=== PATIENT | female | born 1995 | race American Indian/Alaskan Native ===

== ENCOUNTER 2016-11-21 00:42 | Emergency (ER) | payer SELFPAY ==
[2016-11-21 04:07] LABS: Basophils % (Auto) 0.4 % (0.0-1.8); Eosinophils % (Auto) 0.1 % (0.0-4.3); Hematocrit 36.3 % (30.3-42.9); Hemoglobin 12.5 gm/dl (10.1-14.3); Mean Corpuscular HGB Conc 34 % (30-34); Mean Corpuscular Hemoglobin 30 pg (28-32); Mean Corpuscular Volume 86 fl (79-97); Platelet Count 197 K/mm3 (140-440); Red Blood Count 4.23 M/mm3 (3.65-5.03); Red Cell Distribution Width 12.8 % (13.2-15.2); White Blood Count 8.2 K/mm3 (4.5-11.0)
[2016-11-21 04:31] LABS: Alanine Aminotransferase 7 units/L (7-56); Albumin 3.6 g/dL (3.9-5); Albumin/Globulin Ratio 1.2 %; Alkaline Phosphatase 28 units/L (35-129); Anion Gap 17 mmol/L; Bilirubin,Total 0.5 mg/dL (0.1-1.2); Blood Urea Nitrogen 6 mg/dL (7-17); Calcium 9.2 mg/dL (8.4-10.2); Carbon Dioxide 20 mmol/L (22-30); Chloride 103.5 mmol/L (98-107); Glucose 83 mg/dL (65-100); Lipase 23 units/L (13-60); Sodium 136 mmol/L (137-145); Total Protein 6.5 g/dL (6.3-8.2)
[2016-11-21] MEDS ORDERED: TYLENOL PO ONE (07:07)
[2016-11-21] MEDS ORDERED: ALUM-MAG HYDROX-SIMETH 200-200-20MG/5ML PO ONE (07:07)
--- NOTE | 2016-11-21 07:08 | Emergency Department Report ---
ED General Adult HPI - General Chief complaint: Abdominal Pain Stated complaint: STOMACH/THROAT PAIN Time Seen by Provider: 11/21/16 06:59 Source: patient, RN notes reviewed, old records reviewed Mode of arrival: Ambulatory Limitations: No Limitations - History of Present Illness Initial comments: This is a 21-year-old female. She is previously unknown to me. She is 2, para 1. Reports last menstrual period August 25. 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 Reports not really having much in way of care. Presents to the ER with 2 complaints. First complaint is abdominal pain. Abdominal pain is in the left midabdominal region, and intermittently in the right mid abdominal region. It vacillates back and forth. There is no vomiting, no irritative or obstructive urinary symptoms, is currently no right lower quadrant pain, no vaginal discharge, she reports that she is defecating normally. There is no vaginal bleeding. The patient also complains of cough, dry throat, sore throat. This is been going on for the past few days. -: Gradual Location: abdomen Severity scale (0 -10): 4 Quality: aching Consistency: intermittent Improves with: none Worsens with: none Associated Symptoms: cough. denies: chest pain, malaise - Related Data Previous Rx's Medication Instructions Recorded Last Taken Type Doxycycline [Vibramycin CAP] 100 mg PO Q12HR #28 capsule 11/29/15 Unknown Rx Ibuprofen [Motrin] 800 mg PO Q8HR PRN #30 tablet 11/29/15 Unknown Rx Levofloxacin [Levaquin TAB] 500 mg PO QDAY #14 tablet 11/29/15 Unknown Rx metroNIDAZOLE [Flagyl] 500 mg PO Q8HR #28 tablet 11/29/15 Unknown Rx traMADol [Ultram 50 MG tab] 50 mg PO Q6HR PRN #20 tablet 11/29/15 Unknown Rx Ondansetron [Zofran Odt] 4 mg PO Q6H PRN #15 tab.rapdis 11/30/15 Unknown Rx Nitrofurantoin [place]/M-Cryst 100 mg PO Q12HR #14 capsule 10/14/16 Unknown Rx [Macrobid CAP] Vit No.130/Iron/FA 1 each PO QDAY #30 tablet 10/14/16 Unknown Rx [ Tablet] Doxylamine/Pyridoxine HCl 1 each PO QHS PRN #30 tablet. 11/21/16 Unknown Rx [Renetta Hui 10-10 mg Tablet] Vit W-Ca,Fe,FA(<1 mg) 1 each PO QDAY #30 tablet 11/21/16 Unknown Rx [ Vitamins] Allergies Allergy/AdvReac Type Severity Reaction Status Date / Time Penicillins Allergy Unknown Verified 10/13/16 18:28 ED Review of Systems ROS: Stated complaint: STOMACH/THROAT PAIN Other details as noted in HPI Constitutional: no symptoms reported, see HPI Eyes: as per HPI ENT: throat pain Respiratory: no symptoms reported Cardiovascular: as per HPI Endocrine: no symptoms reported Gastrointestinal: abdominal pain Genitourinary: as per HPI Musculoskeletal: as per HPI Skin: as per HPI Neurological: as per HPI Psychiatric: as per HPI Hematological/Lymphatic: as per HPI ED Past Medical Hx - Past Medical History Previous Medical History?: Yes Hx Hypertension: No Hx GERD: Yes Hx Psychiatric Treatment: Yes ([place]- 3x) Hx Asthma: Yes Additional medical history: Neurofibromatosis - Surgical History Past Surgical History?: Yes Additional Surgical History: [place] teeth, left arm - Social History Smoking Status: Never Smoker Substance Use Type: None - Medications Home Medications: Home Medications Medication Instructions Recorded Confirmed Last Taken Type Doxycycline [Vibramycin CAP] 100 mg PO Q12HR #28 capsule 11/29/15 Unknown Rx Ibuprofen [Motrin] 800 mg PO Q8HR PRN #30 tablet 11/29/15 Unknown Rx Levofloxacin [Levaquin TAB] 500 mg PO QDAY #14 tablet 11/29/15 Unknown Rx metroNIDAZOLE [Flagyl] 500 mg PO Q8HR #28 tablet 11/29/15 Unknown Rx traMADol [Ultram 50 MG tab] 50 mg PO Q6HR PRN #20 tablet 11/29/15 Unknown Rx Ondansetron [Zofran Odt] 4 mg PO Q6H PRN #15 tab.rapdis 11/30/15 Unknown Rx Nitrofurantoin [place]/M-Cryst 100 mg PO Q12HR #14 capsule 10/14/16 Unknown Rx [Macrobid CAP] Vit No.130/Iron/FA 1 each PO QDAY #30 tablet 10/14/16 Unknown Rx [ Tablet] Doxylamine/Pyridoxine HCl 1 each PO QHS PRN #30 tablet. 11/21/16 Unknown Rx [Renetta Hui 10-10 mg Tablet] Vit W-Ca,Fe,FA(<1 mg) 1 each PO QDAY #30 tablet 11/21/16 Unknown Rx [ Vitamins] ED Physical Exam - General Limitations: No Limitations General appearance: alert, in no apparent distress - Head Head exam: Present: atraumatic, normocephalic - Eye Eye exam: Present: normal appearance, EOMI. Absent: nystagmus - ENT ENT exam: Present: normal exam, normal orophraynx, mucous membranes moist, normal external ear exam, other (there are no pharyngeal exudates. There is no obvious cervical adenopathy) - Neck Neck exam: Present: normal inspection. Absent: tenderness, meningismus - Respiratory Respiratory exam: Present: normal lung sounds bilaterally. Absent: respiratory distress, wheezes, rales, rhonchi, stridor, chest wall tenderness, accessory muscle use, decreased breath sounds, prolonged expiratory - Cardiovascular Cardiovascular Exam: Present: regular rate, normal rhythm, normal heart sounds. Absent: bradycardia, tachycardia, systolic murmur, diastolic murmur, rubs, gallop - GI/Abdominal GI/Abdominal exam: Present: soft, normal bowel sounds, other (there is minimal left lower quadrant tenderness. There is no right lower quadrant tenderness, rebound or guarding. There is minimal right upper quadrant tenderness, with a negative Gonzalez sign). Absent: distended, guarding, rebound, rigid, pulsatile mass - Extremities Exam Extremities exam: Present: normal inspection, full ROM, normal capillary refill. Absent: tenderness, pedal edema, joint swelling, calf tenderness - Back Exam Back exam: Present: normal inspection, full ROM. Absent: tenderness, CVA tenderness (L), muscle spasm, paraspinal tenderness, vertebral tenderness - Neurological Exam Neurological exam: Present: alert, oriented X3, normal gait, other (Extraocular movements intact. Tongue midline. No facial droop. Facial sensation intact to light touch in the V1, V2, V3 distribution bilaterally. 5 and 5 strength in 4 extremities.. Sensation is intact to light touch in 4 extremities.). Absent : motor sensory deficit - Psychiatric Psychiatric exam: Present: normal affect, normal mood - Skin Skin exam: Present: warm, dry, intact, normal color. Absent: rash ED Course Vital Signs 11/21/16 11/21/16 11/21/16 01:38 08:35 08:36 Temperature 98.5 F 98.7 F Pulse Rate 81 89 Respiratory 18 16 16 Rate Blood Pressure 131/67 116/62 [Right] O2 Sat by Pulse 100 100 100 Oximetry - Reevaluation(s) Reevaluation #1: 11/21/16 07:21 Differential diagnosis: , urinary tract infection, biliary colic, ovarian cyst, round ligament pain, urinary tract infection, constipation, nonspecific pharyngeal irritation Assessment and plan: 21-year-old female with 2 complaints. In terms of the patient's abdominal pain, there is no right lower quadrant tenderness, rebound or guarding, she is afebrile without leukocytosis, and tolerating liquid feeds. I highly doubt appendicitis. Patient has been poorly compliant with outpatient care, she has normal liver function panel and normal lipase, I think biliary disease is unlikely, we will obtain a right upper quadrant ultrasound, urinalysis, and ultrasound. She will be treated with acetaminophen. A urinalysis is pending. In terms of the patient's pharyngeal irritation, there is no obvious redness, exudates, adenopathy, she scores a 0 on the Centor criteria. Therefore think strep pharyngitis is unlikely. She will be given ice chips. Reevaluation #2: 11/21/16 08:49 Feels improved after Tylenol. Belly soft on repeat examination. Tolerating liquid feeds. Ultrasound demonstrates small subchorionic hemorrhage. Patient was found to be Rh+ 1 month ago. Right upper quadrant ultrasound negative. Gynecologic examination: Escorted by nurse Ame Castro. Normal external exam, no cervical motion tenderness no adnexal tenderness. Patient is instructed as to the importance of close outpatient follow-up to initiate care. She will be discharged at this time. Return precautions are reviewed. ED Medical Decision Making - Lab Data Result diagrams: 11/21/16 03:57 11/21/16 03:57 Vital Signs 11/21/16 01:38 Temperature 98.5 F Pulse Rate 81 Respiratory 18 Rate Blood Pressure 131/67 [Right] O2 Sat by Pulse 100 Oximetry Lab Results 11/21/16 11/21/16 11/21/16 Range/Units 03:57 03:57 03:57 WBC 8.2 (4.5-11.0) K/mm3 RBC 4.23 (3.65-5.03) M/mm3 Hgb 12.5 (10.1-14.3) gm/dl Hct 36.3 (30.3-42.9) % MCV 86 (79-97) fl MCH 30 (28-32) pg MCHC 34 (30-34) % RDW 12.8 L (13.2-15.2) % Plt Count 197 (140-440) K/mm3 Lymph % (Auto) 25.1 (13.4-35.0) % [place] % (Auto) 9.9 H (0.0-7.3) % Eos % (Auto) 0.1 (0.0-4.3) % Baso % (Auto) 0.4 (0.0-1.8) % Lymph # 2.0 (1.2-5.4) K/mm3 [place] # 0.8 (0.0-0.8) K/mm3 Eos # 0.0 (0.0-0.4) K/mm3 Baso # 0.0 (0.0-0.1) K/mm3 Seg Neutrophils % 64.5 (40.0-70.0) % Seg Neutrophils # 5.3 (1.8-7.7) K/mm3 Sodium 136 L (137-145) mmol/L Potassium 4.0 (3.6-5.0) mmol/L Chloride 103.5 (98-107) mmol/L Carbon Dioxide 20 L (22-30) mmol/L Anion Gap 17 mmol/L BUN 6 L (7-17) mg/dL Creatinine 0.4 L (0.7-1.2) mg/dL Estimated GFR > 60 ml/min BUN/Creatinine Ratio 15.00 % Glucose 83 (65-100) mg/dL Calcium 9.2 (8.4-10.2) mg/dL Total Bilirubin 0.5 (0.1-1.2) mg/dL AST 14 (5-40) units/L ALT 7 (7-56) units/L Alkaline Phosphatase 28 L (35-129) units/L Total Protein 6.5 (6.3-8.2) g/dL Albumin 3.6 L (3.9-5) g/dL Albumin/Globulin Ratio 1.2 % Lipase 23 (13-60) units/L HCG, Quant 92831 H (0-4) mIU/mL - Radiology Data Radiology results: report reviewed, image reviewed right upper quadrant ultrasound negative. Obstetrics ultrasound demonstrates intrauterine , small subchorionic hemorrhage. Critical care attestation.: If time is entered above; I have spent that time in minutes in the direct care of this critically ill patient, excluding procedure time. ED Disposition Clinical Impression: Disposition: DISCHARGED TO HOME OR SELFCARE Is pt being admited?: No Does the pt Need Aspirin: No Condition: Stable Instructions: Threatened Miscarriage (ED) Additional Instructions: Laboratory studies were unremarkable. Ultrasound demonstrated an appropriate within the uterus, with a small quantity of blood. This is suggestive of threatened miscarriage. Rest and avoid heavy lifting. Do not engage in sexual activity until cleared by a customer success representative. Follow up with a customer success representative as soon as possible. Not following up with an track repair worker may result in defects, danger to your self, danger to the baby. Return to the ER right away with new pain, worsening pain, migration of pain, bleeding more than 2 pads soaked through and through per hour, nausea, vomiting, chest pain or shortness of breath. Take acetaminophen as needed for pain. Take the vitamins as directed. Take nausea medication as needed. Dr. Huertas is a local route service representative. Prescriptions: Doxylamine/Pyridoxine HCl [Renetta Hui 10-10 mg Tablet] 1 each PO QHS PRN #30 tablet.dr LOVING Reason: Nausea Vit W-Ca,Fe,FA(<1 mg) [ Vitamins] 1 each PO QDAY #30 tablet Referrals: PRIMARY MD ANAHI [Primary Care Provider] - 3-5 Days LORY HUERTAS MD [Staff Physician] - 3-5 Days
--- NOTE | 2016-11-21 07:56 | Ultrasound Report ---
RIGHT UPPER QUADRANT ULTRASOUND: HISTORY: Right upper quadrant abdominal pain. Technique: Transabdominal ultrasound imaging with Doppler interrogation. FINDINGS: The gallbladder is sonolucent with no evidence of stones, polyps or wall thickening. The common duct is normal in caliber. Images of the liver parenchyma, pancreas, right kidney and aorta are within normal limits. No perihepatic ascites. IMPRESSION: Unremarkable right upper quadrant ultrasound.
--- NOTE | 2016-11-21 07:59 | Ultrasound Report ---
ULTRASOUND OB LESS THAN 14 WEEKS FETUS History: Abdominal pain during . Technique: Transabdominal ultrasound imaging with Doppler interrogation. Findings: The uterus measures 10.5 x 8.5 x 9.7 cm. An intrauterine is identified with heart rate measuring 156 beats per minute. Qualitative amniotic fluid appears normal. The placenta is forming posteriorly. There appears to be a small subchorionic hemorrhage measuring 5 mm in thickness. [place]-rump length measures 59.8 mm which correlates with a 12 week, 3 day . Both ovaries are visualized. No adnexal cysts or masses demonstrated. No pelvic fluid collection. Impression: Single, viable intrauterine . Small subchorionic hemorrhage.
[2016-11-21 08:20] LABS: Bilirubin,Urine NEG (Negative); Blood,Urine NEG (Negative); Ketones,Urine NEG (Negative); Leukocyte Esterase,Urine LG (Negative); Mucus,Urine FEW /HPF; Nitrite,Urine NEG (Negative); Protein,Urine <15 mg/dL mg/dL (Negative); Urobilinogen,Urine < 2.0 mg/dL (<2.0)
[2016-11-21 08:36] VITALS: BP 116/62
== END 2016-11-21 09:06 | disposition home or self-care (01) ==
LOC: ED 00:42
DX: O98.511 Other viral diseases complicating pregnancy, first trimester (principal); R10.32 Left lower quadrant pain; K21.9 Gastro-esophageal reflux disease without esophagitis; J45.909 Unspecified asthma, uncomplicated; Z88.0 Allergy status to penicillin; Z3A.12 12 weeks gestation of pregnancy
CPT/HCPCS: 36415; 76705; 76801; 80053; 81001; 83690; 84702; 85025; 87591

== ENCOUNTER 2016-12-14 16:31 | Emergency (ER) | payer MEDICARE, OTHER ==
[2016-12-14 17:40] LABS: Basophils % (Auto) 0.4 % (0.0-1.8); Eosinophils % (Auto) 0.2 % (0.0-4.3); Hematocrit 38.2 % (30.3-42.9); Hemoglobin 12.7 gm/dl (10.1-14.3); Mean Corpuscular HGB Conc 33 % (30-34); Mean Corpuscular Hemoglobin 29 pg (28-32); Mean Corpuscular Volume 87 fl (79-97); Platelet Count 205 K/mm3 (140-440); Red Blood Count 4.38 M/mm3 (3.65-5.03); Red Cell Distribution Width 12.6 % (13.2-15.2); White Blood Count 8.3 K/mm3 (4.5-11.0)
[2016-12-14 18:37] LABS: Bilirubin,Urine NEG (Negative); Blood,Urine NEG (Negative); Ketones,Urine NEG (Negative); Leukocyte Esterase,Urine NEG (Negative); Mucus,Urine FEW /HPF; Nitrite,Urine NEG (Negative); Protein,Urine <15 mg/dL mg/dL (Negative); Urobilinogen,Urine < 2.0 mg/dL (<2.0)
[2016-12-14 18:38] LABS: RBC,Urine < 1.0 /HPF (0.0-6.0); WBC,Urine < 1.0 /HPF (0.0-6.0)
--- NOTE | 2016-12-14 21:19 | Emergency Department Report ---
ED Abdominal Pain HPI - General Chief Complaint: Vaginal Bleeding Stated Complaint: 16 WKS , SPOTTING Time Seen by Provider: 12/14/16 20:51 Source: patient, EMS Mode of arrival: Ambulatory Limitations: No Limitations - History of Present Illness Initial Comments: Condition is a 21-year-old female with no past medical history presenting to the ER with intermittent abdominal cramping and vaginal bleeding. She reports for the last 2 days she's had some intermittent cramping in the lower abdomen and light pink spotting times one episode. Patient reports she is approximately 16 weeks' gestation with no care. Otherwise no fevers, chills, nausea, vomiting, chest pain, shortness of breath, trauma, falls, travel , or sick contacts MD Complaint: abdominal pain, other (vaginal spotting) Severity scale (0 -10): 0 - Related Data Home Medications Medication Instructions Recorded Confirmed Last Taken No Known Home Medications [No 12/14/16 12/14/16 Unknown Reported Home Medications] Allergies Allergy/AdvReac Type Severity Reaction Status Date / Time Penicillins Allergy Unknown Verified 10/13/16 18:28 ED Review of Systems ROS: Stated complaint: 16 WKS , SPOTTING Other details as noted in HPI Comment: All other systems reviewed and negative ED Past Medical Hx - Past Medical History Previous Medical History?: Yes Hx Hypertension: No Hx GERD: Yes Hx Psychiatric Treatment: Yes ([place]- 3x) Hx Asthma: Yes Additional medical history: Neurofibromatosis - Surgical History Past Surgical History?: Yes Additional Surgical History: [place] teeth, left arm - Social History Smoking Status: Current Every Day Smoker - Medications Home Medications: Home Medications Medication Instructions Recorded Confirmed Last Taken Type No Known Home Medications [No 12/14/16 12/14/16 Unknown History Reported Home Medications] ED Physical Exam - General Limitations: No Limitations General appearance: alert, in no apparent distress - Head Head exam: Present: atraumatic, normocephalic - Eye Eye exam: Present: normal appearance - ENT ENT exam: Present: mucous membranes moist - Neck Neck exam: Present: normal inspection - Respiratory Respiratory exam: Present: normal lung sounds bilaterally. Absent: respiratory distress - Cardiovascular Cardiovascular Exam: Present: regular rate, normal rhythm. Absent: systolic murmur, diastolic murmur, rubs, gallop - GI/Abdominal GI/Abdominal exam: Present: soft, normal bowel sounds, other (gravid). Absent: tenderness, guarding, rebound, rigid, organomegaly - External exam: Absent: erythema, swelling, lesions, lacerations, ecchymosis, bleeding - Extremities Exam Extremities exam: Present: normal inspection - Back Exam Back exam: Present: normal inspection - Neurological Exam Neurological exam: Present: alert, oriented X3 - Psychiatric Psychiatric exam: Present: normal affect, normal mood - Skin Skin exam: Present: warm, dry, intact, normal color. Absent: rash ED Course Vital Signs 12/14/16 12/14/16 12/14/16 16:40 20:38 21:42 Temperature 98.6 F Pulse Rate 72 88 83 Respiratory 20 16 16 Rate Blood Pressure 115/60 Blood Pressure 127/52 111/56 [Right] O2 Sat by Pulse 100 100 100 Oximetry 12/14/16 12/14/16 22:42 23:43 Temperature Pulse Rate 79 87 Respiratory 19 17 Rate Blood Pressure Blood Pressure 113/67 103/56 [Right] O2 Sat by Pulse 99 99 Oximetry ED Medical Decision Making - Lab Data Result diagrams: 12/14/16 17:23 - Radiology Data Radiology results: report reviewed Pelvic US: posterior low lying placenta, IUP at 16 weeks 2 days Critical care attestation.: If time is entered above; I have spent that time in minutes in the direct care of this critically ill patient, excluding procedure time. ED Disposition Clinical Impression: Threatened Disposition: DISCHARGED TO HOME OR SELFCARE Is pt being admited?: No Condition: Stable Instructions: Threatened Miscarriage (ED) Referrals: MAGGIE FINNEY MD [Primary Care Provider] - 3-5 Days
[2016-12-14] MEDS ORDERED: NACL 0.9% 1000 ML 1,000 ML ONE (21:34)
[2016-12-14] MEDS ORDERED: NACL 0.9% 1000 ML 1,000 ML IV ONE (21:41)
[2016-12-14 23:43] VITALS: BP 103/56
--- NOTE | 2016-12-14 23:57 | Ultrasound Report ---
FINAL REPORT PROCEDURE: US OB \T\gt; = 14 WEEKS FETUS TECHNIQUE: Real-time transabdominal sonography of the uterus, placenta, amniotic fluid, adnexa, and fetus was performed with image documentation. Detailed anatomic examination was performed. Measurements were obtained to determine age/size. M-mode Doppler was used to document heartbeat. CPT 70188 HISTORY: threatened ab COMPARISON: Transvaginal pelvic ultrasound also performed today. Prior transabdominal transvaginal pelvic ultrasound performed 10/14/2019 FINDINGS: The report for this exam was generated using images from both the transabdominal and transvaginal OB ultrasound both of which were performed today. There is a single living intrauterine gestation currently visualized transverse presentation head on the maternal right with a heart rate of 160 beats per minute. Subjectively the amount of amniotic fluid appears normal. The placenta is located posterior and is grade 0. No abruption is visualized. The edge of the placenta is low-lying although does not appear to cover the internal cervical os. Cervix length 4.2 centimeters. The posterior fossa the brain, the lateral ventricles and cavum septum pellucidum as well as the thalamus are unremarkable. Four-chamber view of the heart is unremarkable. The stomach and bladder are visualized. Three-vessel cord is confirmed with visualization of 2 arcuate arteries at the level of the urinary bladder. Kidneys are suboptimally visualized. Cord insertion is unremarkable. Extremities were not studied in detail. Facial profile and upper lip were not seen. spine was not clearly demonstrated. The following measurements were obtained: Biparietal diameter 3.4 centimeter equals 16 week 4 day Head circumference 12.5 centimeter equals 16 week 2 day Abdominal circumference 10.4 centimeter equals 16 week 3 day Femur length 2 centimeter equals 15 weeks 6 days. weight 147 grams 20 2 grams equals 0 pounds 5 ounces 1 ounce. IMPRESSION: There is a single living intrauterine gestation currently visualized in the transverse presentation head on the maternal left. The amount of amniotic fluid appears normal. There is a posterior placenta visualize which is grade 0. Low lying placenta as described. No abruption is visualized. Average sonographic age by today's exam 16 weeks 2 days. The expected age by the initial exam 15 weeks and 6 days. There has been appropriate interval growth. Estimated date confinement remains at 06/01/2000 170.5 weeks according to the initial exam. No abnormalities are identified however the spine, facial features and extremities were not clearly visualized. Consider follow-up exam if clinically indicated.
--- NOTE | 2016-12-14 23:58 | Ultrasound Report ---
FINAL REPORT PROCEDURE: US OB TRANSVAGINAL TECHNIQUE: Real-time transvaginal sonography of the uterus, placenta, amniotic fluid, adnexa, and fetus was performed with image documentation. Measurements were obtained to determine age/size. M-mode Doppler was used to document heartbeat. CPT 96230 HISTORY: Threatened COMPARISON: Transabdominal OB ultrasound performed earlier today. FINDINGS: The report for this exam was generated using images from both the transabdominal and transvaginal OB ultrasound both of which were performed today. There is a single living intrauterine gestation currently visualized transverse presentation head on the maternal right with a heart rate of 160 beats per minute. Subjectively the amount of amniotic fluid appears normal. The placenta is located posterior and is grade 0. No abruption is visualized. The edge of the placenta is low-lying although does not appear to cover the internal cervical os. Cervix length 4.2 centimeters. The posterior fossa the brain, the lateral ventricles and cavum septum pellucidum as well as the thalamus are unremarkable. Four-chamber view of the heart is unremarkable. The stomach and bladder are visualized. Three-vessel cord is confirmed with visualization of 2 arcuate arteries at the level of the urinary bladder. Kidneys are suboptimally visualized. Cord insertion is unremarkable. Extremities were not studied in detail. Facial profile and upper lip were not seen. spine was not clearly demonstrated. The following measurements were obtained: Biparietal diameter 3.4 centimeter equals 16 week 4 day Head circumference 12.5 centimeter equals 16 week 2 day Abdominal circumference 10.4 centimeter equals 16 week 3 day Femur length 2 centimeter equals 15 weeks 6 days. weight 147 grams 20 2 grams equals 0 pounds 5 ounces 1 ounce. IMPRESSION: There is a single living intrauterine gestation currently visualized in the transverse presentation head on the maternal left. The amount of amniotic fluid appears normal. There is a posterior placenta visualize which is grade 0. Low lying placenta as described. No abruption is visualized. Average sonographic age by today's exam 16 weeks 2 days. The expected age by the initial exam 15 weeks and 6 days. There has been appropriate interval growth. Estimated date confinement remains at 06/01/2000 170.5 weeks according to the initial exam. No abnormalities are identified however the spine, facial features and extremities were not clearly visualized. Consider follow-up exam if clinically indicated.
== END 2016-12-15 00:30 | disposition home or self-care (01) ==
LOC: ED 16:31
DX: O20.0 Threatened abortion (principal); O99.512 Diseases of the respiratory system complicating pregnancy, second trimester; K21.9 Gastro-esophageal reflux disease without esophagitis; O99.332 Smoking (tobacco) complicating pregnancy, second trimester; Z3A.16 16 weeks gestation of pregnancy; Z88.0 Allergy status to penicillin
CPT/HCPCS: 36415; 76805; 76817; 81001; 82962; 84702; 85025; 86850; 86900; 86901; 96360; 99284; J7030

== ENCOUNTER 2017-02-12 17:01 | Outpatient (CLI) | payer MEDICAID ==
[2017-02-12 17:32] VITALS: BP 117/66
[2017-02-12] MEDS ORDERED: LACTATED RINGERS 500 ML IV ONE (18:18)
[2017-02-12 18:44] LABS: Bilirubin,Urine NEG (Negative); Blood,Urine NEG (Negative); Ketones,Urine NEG (Negative); Leukocyte Esterase,Urine LG (Negative); Nitrite,Urine NEG (Negative); Protein,Urine <15 mg/dL mg/dL (Negative); Urobilinogen,Urine < 2.0 mg/dL (<2.0)
== END 2017-02-12 20:07 | disposition home or self-care (01) ==
LOC: TRG 17:01
PROVIDERS: ATTEND Obstetrics & Gynecology
DX: O47.02 False labor before 37 completed weeks of gestation, second trimester (principal); Z3A.24 24 weeks gestation of pregnancy
CPT/HCPCS: 81001; 96360; J7120

== ENCOUNTER 2017-03-04 17:41 | Outpatient (CLI) | payer MEDICAID ==
[2017-03-04] MEDS ORDERED: LACTATED RINGERS 500 ML IV ONE (19:20)
[2017-03-04 19:48] LABS: Bilirubin,Urine NEG (Negative); Blood,Urine NEG (Negative); Ketones,Urine NEG (Negative); Leukocyte Esterase,Urine SM (Negative); Mucus,Urine FEW /HPF; Nitrite,Urine NEG (Negative); Protein,Urine <15 mg/dL mg/dL (Negative)
[2017-03-04 20:24] VITALS: BP 100/75
== END 2017-03-04 22:20 | disposition home or self-care (01) ==
LOC: ED 17:41 → TRG 17:41 → ED 18:14 → TRG 18:14 → EDSTATUS 18:16 → TRG 22:20
PROVIDERS: ATTEND Obstetrics & Gynecology
DX: O99.512 Diseases of the respiratory system complicating pregnancy, second trimester (principal); R06.02 Shortness of breath; O26.892 Other specified pregnancy related conditions, second trimester; M79.606 Pain in leg, unspecified; Z3A.27 27 weeks gestation of pregnancy
CPT/HCPCS: 59025; 81001

== ENCOUNTER 2017-03-19 13:59 | Emergency (ER) | payer MEDICAID ==
[2017-03-19 14:58] VITALS: BP 112/54
--- NOTE | 2017-03-19 18:34 | Emergency Department Report ---
HPI - General Chief Complaint: Sore Throat Time Seen by Provider: 03/19/17 18:18 - HPI HPI: This is a 21-year-old female 30 the weeks' gestation who is followed by [facility]UC[facility] PROFESS[facility] residency ED complaining of yellow mucus productive cough, congestion, sneezing, sore throat 5 days. Patient denies fevers/chills/ nausea/vomiting/vaginal bleeding/vaginal discharge. She reports good movement. She says she has no pulmonary BUSINESS EDUCATION PROFESSOR as [facility] tomorrow. ED Past Medical Hx - Past Medical History Previous Medical History?: Yes Hx Hypertension: No Hx Diabetes: No Hx Deep Vein Thrombosis: No Hx GERD: Yes Hx Renal Disease: No Hx Sickle Cell Disease: No Hx Seizures: No Hx Psychiatric Treatment: Yes ([place]- 3x) Hx Asthma: Yes (last night) Hx HIV: No Additional medical history: Neurofibromatosis - Surgical History Past Surgical History?: Yes Additional Surgical History: [place] teeth, left arm - Social History Smoking Status: Never Smoker Substance Use Type: None - Medications Home Medications: Home Medications Medication Instructions Recorded Confirmed Last Taken Type Azithromycin [Zithromax TAB] 250 mg PO DAILY #4 tablet 03/19/17 Unknown Rx Cetirizine HCl [ZyrTEC] 10 mg PO DAILY #30 tab.rapdis 03/19/17 Unknown Rx guaiFENesin [Robitussin] 200 mg PO Q6H #100 ml 03/19/17 Unknown Rx ED Review of Systems ROS: Stated complaint: ASTHMA/BRONCHITIS/VOMITING Other details as noted in HPI Constitutional: denies: chills, fever Eyes: denies: eye pain, eye discharge, vision change ENT: throat pain, congestion. denies: ear pain, dental pain, hearing loss Respiratory: cough. denies: shortness of breath, wheezing Cardiovascular: denies: chest pain, palpitations Endocrine: no symptoms reported Gastrointestinal: denies: abdominal pain, nausea, diarrhea Genitourinary: denies: urgency, dysuria, discharge Musculoskeletal: denies: back pain, joint swelling, arthralgia Skin: denies: rash, lesions Neurological: denies: headache, weakness, paresthesias Psychiatric: denies: anxiety, depression Hematological/Lymphatic: denies: easy bleeding, easy bruising Physical Exam - Physical Exam Vital Signs: Vital Signs 03/19/17 14:55 Temperature 98.5 F Pulse Rate 95 H Respiratory 18 Rate Blood Pressure 112/54 O2 Sat by Pulse 100 Oximetry Physical Exam: GENERAL: Alert and oriented x3, no apparent distress, Normal Gait, atraumatic. HEAD: Head is normocephalic and a-traumatic. EYES: Extra ocular muscles are intact. Pupils are equal, round, and reactive to light and accommodation. EARS: symetrical, atraumatic, non tender, ear canal clear and moderate cerumen, tympanic membrance non inflamed. gross auditory nml bilaterally. NOSE: Nose symetrical, Nontender,Nares appeared normal. MOUTH:Mouth is well hydrated and without lesions. Tonsils nonerythematous or swollen, Uvula midline, Tongue not elevated. Mucous membranes are moist. Posterior pharynx clear, no exudate or lesions. Patent airways. NECK: Supple. Non edematous, No lymphadenopathy or thyromegaly. No C-spine tenderness LUNGS: Symetrical with respiration, No wheezing, no rales or crackles, CTAB. HEART: S1, S2 present, regular rate and rhythm without murmur, no rubs, no gallops. Non tender to palpation ABDOMEN: gravid uterus noted,Positive bowel sounds, soft, and non-distended. . Nontender to palpation on all Quadrants, NO CVA tenderness. SKIN: Warm and dry, No lesions, No ulceration or induration present. ED Course Vital Signs 03/19/17 14:55 Temperature 98.5 F Pulse Rate 95 H Respiratory 18 Rate Blood Pressure 112/54 O2 Sat by Pulse 100 Oximetry ED Medical Decision Making - Medical Decision Making 21-year-old female presents with upper respiratory infection ED course: Patient received azithromycin, Robitussin, Zyrtec in ED Discussed the patient medication as prescribed. Discussed divorce and symptoms to return to ED Discussed keep appointment with BUSINESS EDUCATION PROFESSOR. Critical care attestation.: If time is entered above; I have spent that time in minutes in the direct care of this critically ill patient, excluding procedure time. ED Disposition Clinical Impression: URI with cough and congestion Disposition: - TO HOME OR SELFCARE Is pt being admited?: No Does the pt Need Aspirin: No Condition: Stable Instructions: Upper Respiratory Infection (ED) Prescriptions: Azithromycin [Zithromax TAB] 250 mg PO DAILY #4 tablet Cetirizine HCl [ZyrTEC] 10 mg PO DAILY #30 tab.rapdis guaiFENesin [Robitussin] 200 mg PO Q6H #100 ml Referrals: PRIMARY CAREMD [Primary Care Provider] - 3-5 Days NAT OLIVIA MD [Referring] - 3-5 Days Forms: Work/School Release Form(ED) Time of Disposition: 18:49
[2017-03-19] MEDS ORDERED: ZITHROMAX PO ONE (18:38)
[2017-03-19] MEDS ORDERED: CLARITIN PO ONE (18:38)
[2017-03-19] MEDS ORDERED: ROBITUSSIN PO ONE (18:38)
== END 2017-03-19 18:58 | disposition home or self-care (01) ==
LOC: ED 13:59
DX: O99.513 Diseases of the respiratory system complicating pregnancy, third trimester (principal); J06.9 Acute upper respiratory infection, unspecified; K21.9 Gastro-esophageal reflux disease without esophagitis; J45.909 Unspecified asthma, uncomplicated
CPT/HCPCS: 99282

== ENCOUNTER 2017-05-01 18:07 | Inpatient (IN) | payer MEDICAID ==
--- NOTE | 2017-05-01 19:49 | History and Physical Report ---
History of Present Illness Date of examination: 05/01/17 Date of admission: 05/01/17 18:07 Chief complaint: Low amniotic fluid History of present illness: 21-year-old at 35+4 weeks is referred from [facility], she is a [facility]/ [employer] [facility] patient. Essential history is patient has had no care since October. She was seen by an [facility] practice in October and was referred to [facility], she saw [facility] in October but did not follow up with her primary [facility] SCIENCE TEACHER practice. It appears she was seen by [facility] intermittently. She was seen at [facility] office today and was noted to have CHARAN of ~ 5. She is referred to [facility] for IV hydration and repeat testing in the a.m. Atenatal care complicated by noncompliance as above, IUGR, and history of SIDS in 2013 (Per pt, with IUGR induced for poor studies) She currently has no contractions, no loss of fluid plus movement BPP and Doppler studies from [facility] office reassuring today Past History Past Medical History: asthma (Mild), neurologic (neurofibromatosis) Past Surgical History: other ([place] tooth extraction) [employer] History: chlamydia, gonorrhea. denies: hepatitis B, hepatitis C, herpes, HIV, syphilis, trichomonas Social history: single, full code. denies: smoking, alcohol abuse, prescription drug abuse, IV drug use - Obstetrical History Expected Date of Delivery: 06/01/17 Actual Gestation: 35 Week(s) 4 Day(s) : 2 Para: 1 Hx # Term Pregnancies: 0 Medications and Allergies Allergies Allergy/AdvReac Type Severity Reaction Status Date / Time Penicillins Allergy Severe Swelling Verified 03/04/17 19:20 Home Medications Medication Instructions Recorded Confirmed Last Taken Type Azithromycin [Zithromax TAB] 250 mg PO DAILY #4 tablet 03/19/17 Unknown Rx Cetirizine HCl [ZyrTEC] 10 mg PO DAILY #30 tab.rapdis 03/19/17 Unknown Rx guaiFENesin [Robitussin] 200 mg PO Q6H #100 ml 03/19/17 Unknown Rx Review of Systems Constitutional: no fever, no chills Cardiovascular: no chest pain, no dyspnea on exertion, no high blood pressure, no decreased exercise tolerance Respiratory: no shortness of breath, no dyspnea on exertion Gastrointestinal: no abdominal pain, no nausea, no vomiting, no diarrhea, no indigestion Genitourinary: no vaginal bleeding, no leakage of fluid, no contractions - Vital Signs Vital signs: Vital Signs Pulse BP 68 116/60 05/01/17 18:35 05/01/17 18:35 Temp Pulse Resp BP Pulse Ox 68 116/60 05/01/17 18:35 05/01/17 18:35 - Physical Exam Cardiovascular: Regular rate, Normal S1, Normal S2 Lungs: Positive: Clear to auscultation, Normal air movement Abdomen: Positive: normal appearance, soft. Negative: distention, tenderness, guarding, rigidity Genitourinary (Female): Positive: normal external genitalia Uterus: Positive: enlarged (EFW ~ 2000) Adnexa: both: normal Extremities: Positive: normal Results All other labs normal. Assessment and Plan A: 21-year-old 101 at 35+4 weeks with borderline low amniotic fluid -BPP and Doppler studies within normal at [facility] office today -No evidence of acute or chronic uteroplacental insufficiency -No evidence of rupture of membrane P: -Admit for observation -IV hydration -Repeat BPP in the a.m. -Disposition ater results available - Patient Problems (1) 35 to 36 weeks gestation of Current Visit: Yes Status: Acute (2) Oligohydramnios in third trimester Current Visit: Yes Status: Acute Qualifiers: Fetus number: F (3) Limited care Current Visit: Yes Status: Acute Qualifiers: Trimester: T
[2017-05-01] MEDS ORDERED: TYLENOL PO PRN (19:56)
[2017-05-01] MEDS ORDERED: COLACE PO PRN (19:56)
[2017-05-01] MEDS ORDERED: ZOFRAN IV PRN (19:56)
[2017-05-01] MEDS: LACTATED RINGERS 1,000 ML IV SCH (20:20)
[2017-05-01 21:38] LABS: Urine Drugs of Abuse Note Disclamer
[2017-05-01 22:44] LABS: Basophils % (Auto) 0.3 % (0.0-1.8); Eosinophils % (Auto) 0.1 % (0.0-4.3); Hematocrit 34.9 % (30.3-42.9); Hemoglobin 11.9 gm/dl (10.1-14.3); Mean Corpuscular HGB Conc 34 % (30-34); Mean Corpuscular Hemoglobin 30 pg (28-32); Mean Corpuscular Volume 88 fl (79-97); Platelet Count 168 K/mm3 (140-440); Red Blood Count 3.99 M/mm3 (3.65-5.03); Red Cell Distribution Width 12.7 % (13.2-15.2); White Blood Count 8.1 K/mm3 (4.5-11.0)
--- NOTE | 2017-05-02 08:47 | Progress Note ---
Assessment and Plan A: 21-year-old at 35+5 weeks with borderline low amniotic fluid -Cat 1 tracing P: -Repeat BPP this a.m. -Disposition ater results available -Continue fluid hydration - Patient Problems (1) 35 to 36 weeks gestation of Current Visit: Yes Status: Acute (2) Oligohydramnios in third trimester Current Visit: Yes Status: Acute Qualifiers: Fetus number: F (3) Limited care Current Visit: Yes Status: Acute Qualifiers: Trimester: T Subjective - Subjective Date of service: 05/02/17 Principal diagnosis: IUP @ 35+5 wks with borderline normal CHARAN Interval history: Patient seen and examined, stable no issues Patient reports: new complaints, movement normal, no loss of fluid, no vaginal bleeding, no contractions Objective - Vital Signs Vital Signs: Vital Signs - 12hr 05/01/17 05/01/17 05/02/17 23:30 23:31 03:14 Temperature 98.3 F Pulse Rate 73 73 75 Respiratory 16 Rate Blood Pressure 123/62 111/60 Blood Pressure 123/62 [Left] 05/02/17 05/02/17 03:15 08:20 Temperature 97.9 F Pulse Rate 75 68 Respiratory 16 Rate Blood Pressure 118/72 Blood Pressure 111/60 [Left] - Exam Cardiovascular: Regular rate, Normal S1, Normal S2 Lungs: Clear to auscultation, Normal air movement Abdomen: Present: normal appearance, soft. Absent: distention, tenderness, guarding, rigidity Uterus: Present: fundal height above umbilicus. Absent: tenderness FHR: category 1 - Labs Labs: Abnormal Labs 05/01/17 19:56 RDW 12.7 L Crane % (Auto) 9.2 H Seg Neutrophils % 72.8 H Laboratory Results - last 24 hr 05/01/17 05/01/17 05/01/17 19:56 21:25 22:07 WBC 8.1 RBC 3.99 Hgb 11.9 Hct 34.9 MCV 88 MCH 30 MCHC 34 RDW 12.7 L Plt Count 168 Lymph % (Auto) 17.6 Crane % (Auto) 9.2 H Eos % (Auto) 0.1 Baso % (Auto) 0.3 Lymph # 1.4 Crane # 0.7 Eos # 0.0 Baso # 0.0 Seg Neutrophils % 72.8 H Seg Neutrophils # 5.9 Urine Opiates Screen Presumptive negative Urine Methadone Screen Presumptive negative Ur Barbiturates Screen Presumptive negative Ur Phencyclidine Scrn Presumptive negative Ur Amphetamines Screen Presumptive negative U Benzodiazepines Scrn Presumptive negative Urine Cocaine Screen Presumptive negative U Marijuana (THC) Screen Presumptive negative Drugs of Abuse Note Disclamer Blood Type B POSITIVE Antibody Screen Negative
[2017-05-02] MEDS ORDERED: PRENATAL VITAMIN PO SCH (10:00)
[2017-05-02] MEDS: LACTATED RINGERS 1,000 ML IV SCH ×2 (10:47→17:09)
--- NOTE | 2017-05-02 11:19 | Ultrasound Report ---
ULTRASOUND BIOPHYSICAL PROFILE: History: well being Technique: Transabdominal ultrasound with Doppler interrogation. 2 - breathing movements 2 - movements 2 - posture and tone 0 - Qualitative amniotic fluid volume 6 - TOTAL SCORE OF POSSIBLE 8 Heart Rate (bpm) 149
--- NOTE | 2017-05-02 11:20 | Ultrasound Report ---
ULTRASOUND OB LIMITED History: well being, intrauterine growth restriction, oligohydramnios Technique: Transabdominal ultrasound with Doppler interrogation. Gestation: Single Position: Cephalic Amniotic Fluid: Decreased CHARAN = 3.7 cm Heart Rate: 152 BPM
[2017-05-02] MEDS ORDERED: BRETHINE SUB-Q PRN (12:52)
[2017-05-02] MEDS ORDERED: BRETHINE IVP PRN (12:52)
[2017-05-02] MEDS ORDERED: ePHEDrine SULFATE IV PRN (12:52)
[2017-05-02] MEDS ORDERED: NARCAN 0.4 MG/1 ML IV PRN (12:52)
[2017-05-02] MEDS ORDERED: XYLOCAINE 2% INFILTRATI ONE (12:52)
[2017-05-02] MEDS ORDERED: MINERAL OIL PO PRN (12:52)
[2017-05-02] MEDS ORDERED: PHENERGAN PO PRN (12:52)
[2017-05-02] MEDS ORDERED: PITOCin/NS 30 UNIT/500ML 30 UNITS/500 ML BAG IV SCH ×2 (13:00)
[2017-05-02] MEDS ORDERED: PITOCin/NS 20 UNIT/1000ML DRIP 20 UNITS/1,000 ML BAG IV SCH (13:00)
--- NOTE | 2017-05-02 13:09 | Event Note ---
Date: 05/02/17 Patient is s/p CHARAN, result is ~ 3. Plan is to proceed with delivery, reviewed with ASHLEY
[2017-05-02 13:31] LABS: HIV-1 Antigen p24 Non React (Non React); HIVR-1/2 Ab Non React (Non React)
[2017-05-02 13:45] LABS: Hemoglobin 11.8 gm/dl (10.1-14.3); Mean Corpuscular HGB Conc 35 % (30-34); Mean Corpuscular Hemoglobin 30 pg (28-32); Mean Corpuscular Volume 86 fl (79-97); Platelet Count 151 K/mm3 (140-440); Red Blood Count 3.94 M/mm3 (3.65-5.03); Red Cell Distribution Width 12.7 % (13.2-15.2); White Blood Count 7.7 K/mm3 (4.5-11.0)
[2017-05-02] MEDS: SUBLIMAZE IV PRN ×2 (17:35→19:42)
--- NOTE | 2017-05-02 20:16 | Progress Note ---
Assessment and Plan - Patient Problems (1) 35 to 36 weeks gestation of Current Visit: Yes Status: Acute (2) Oligohydramnios in third trimester Current Visit: Yes Status: Acute Qualifiers: Fetus number: F (3) Limited care Current Visit: Yes Status: Acute Qualifiers: Trimester: T Subjective - Subjective Date of service: 05/02/17 Principal diagnosis: IUP @ 35+5 wks with borderline normal CHARAN Patient reports: new complaints, movement normal, no loss of fluid, no vaginal bleeding, no contractions Objective - Vital Signs Vital Signs: Vital Signs - 12hr 05/02/17 05/02/17 05/02/17 08:20 12:07 13:41 Temperature 98.6 F Pulse Rate 68 75 Respiratory Rate Blood Pressure 118/72 123/64 Blood Pressure [Left] O2 Sat by Pulse Oximetry 05/02/17 05/02/17 05/02/17 17:35 19:42 20:05 Temperature 98.3 F Pulse Rate 72 Respiratory 18 12 12 Rate Blood Pressure Blood Pressure 123/63 [Left] O2 Sat by Pulse 100 Oximetry 05/02/17 05/02/17 05/02/17 20:09 20:14 20:15 Temperature Pulse Rate 66 68 73 Respiratory Rate Blood Pressure Blood Pressure [Left] O2 Sat by Pulse 91 99 93 Oximetry 05/02/17 20:19 Temperature Pulse Rate 67 Respiratory Rate Blood Pressure Blood Pressure [Left] O2 Sat by Pulse 99 Oximetry - Exam FHR: category 1 - Labs Labs: Abnormal Labs 05/01/17 05/02/17 19:56 13:15 MCHC 35 H RDW 12.7 L 12.7 L [place] % (Auto) 9.2 H Seg Neutrophils % 72.8 H Laboratory Results - last 24 hr 05/01/17 05/01/17 05/01/17 19:56 21:25 22:07 WBC 8.1 RBC 3.99 Hgb 11.9 Hct 34.9 MCV 88 MCH 30 MCHC 34 RDW 12.7 L Plt Count 168 Lymph % (Auto) 17.6 [place] % (Auto) 9.2 H Eos % (Auto) 0.1 Baso % (Auto) 0.3 Lymph # 1.4 Citrus # 0.7 Eos # 0.0 Baso # 0.0 Seg Neutrophils % 72.8 H Seg Neutrophils # 5.9 Urine Opiates Screen Presumptive negative Urine Methadone Screen Presumptive negative Ur Barbiturates Screen Presumptive negative Ur Phencyclidine Scrn Presumptive negative Ur Amphetamines Screen Presumptive negative U Benzodiazepines Scrn Presumptive negative Urine Cocaine Screen Presumptive negative U Marijuana (THC) Screen Presumptive negative Drugs of Abuse Note Disclamer Hep Bs Antigen HIV 1&2 Antibody Rapid HIV P24 Antigen Rubella IgG Antibody Blood Type B POSITIVE Antibody Screen Negative 05/02/17 05/02/17 05/02/17 12:24 12:24 12:24 WBC RBC Hgb Hct MCV MCH MCHC RDW Plt Count Lymph % (Auto) [place] % (Auto) Eos % (Auto) Baso % (Auto) Lymph # [place] # Eos # Baso # Seg Neutrophils % Seg Neutrophils # Urine Opiates Screen Urine Methadone Screen Ur Barbiturates Screen Ur Phencyclidine Scrn Ur Amphetamines Screen U Benzodiazepines Scrn Urine Cocaine Screen U Marijuana (THC) Screen Drugs of Abuse Note Hep Bs Antigen Non-reactive HIV 1&2 Antibody Rapid Non react HIV P24 Antigen Non react Rubella IgG Antibody Immune Blood Type Antibody Screen 05/02/17 05/02/17 13:05 13:15 WBC 7.7 RBC 3.94 Hgb 11.8 Hct 34.0 MCV 86 MCH 30 MCHC 35 H RDW 12.7 L Plt Count 151 Lymph % (Auto) [place] % (Auto) Eos % (Auto) Baso % (Auto) Lymph # [place] # Eos # Baso # Seg Neutrophils % Seg Neutrophils # Urine Opiates Screen Urine Methadone Screen Ur Barbiturates Screen Ur Phencyclidine Scrn Ur Amphetamines Screen U Benzodiazepines Scrn Urine Cocaine Screen U Marijuana (THC) Screen Drugs of Abuse Note Hep Bs Antigen HIV 1&2 Antibody Rapid HIV P24 Antigen Rubella IgG Antibody Blood Type B POSITIVE Antibody Screen Negative
[2017-05-03] MEDS: LACTATED RINGERS 1,000 ML IV SCH ×4 (00:47→18:06)
--- NOTE | 2017-05-03 06:30 | Progress Note ---
Assessment and Plan A: 21-year-old at 36 weeks with borderline low amniotic fluid -Cat 1 tracing P: -Continue induction process -Anticipate normal vaginal delivery - Patient Problems (1) 35 to 36 weeks gestation of Current Visit: Yes Status: Acute (2) Oligohydramnios in third trimester Current Visit: Yes Status: Acute Qualifiers: Fetus number: F (3) Limited care Current Visit: Yes Status: Acute Qualifiers: Trimester: T Subjective - Subjective Date of service: 05/03/17 Principal diagnosis: IUP @ 36 wks with borderline normal CHARAN Interval history: Patient seen and examined, stable no issues. Currently on Oxytocin at 4 mu/min Patient reports: new complaints, movement normal, no loss of fluid, no vaginal bleeding, no contractions Objective - Vital Signs Vital Signs: Vital Signs - 12hr 05/02/17 05/02/17 05/02/17 19:42 20:05 20:09 Temperature 98.3 F Pulse Rate 72 66 Respiratory 12 12 Rate Blood Pressure Blood Pressure 123/63 [Left] O2 Sat by Pulse 100 91 Oximetry 05/02/17 05/02/17 05/02/17 20:14 20:15 20:19 Temperature Pulse Rate 68 73 67 Respiratory Rate Blood Pressure Blood Pressure [Left] O2 Sat by Pulse 99 93 99 Oximetry 05/02/17 05/02/17 05/03/17 20:21 20:24 00:46 Temperature Pulse Rate 65 64 69 Respiratory Rate Blood Pressure 117/55 Blood Pressure [Left] O2 Sat by Pulse 91 99 Oximetry 05/03/17 05/03/17 05/03/17 00:48 00:53 00:58 Temperature Pulse Rate 71 68 72 Respiratory Rate Blood Pressure Blood Pressure [Left] O2 Sat by Pulse 96 98 98 Oximetry 05/03/17 05/03/17 05/03/17 01:03 01:08 01:13 Temperature Pulse Rate 71 68 71 Respiratory Rate Blood Pressure Blood Pressure [Left] O2 Sat by Pulse 98 98 98 Oximetry 05/03/17 05/03/17 05/03/17 01:18 01:23 01:28 Temperature Pulse Rate 73 73 73 Respiratory Rate Blood Pressure Blood Pressure [Left] O2 Sat by Pulse 97 98 98 Oximetry 05/03/17 05/03/17 05/03/17 01:33 01:38 01:43 Temperature Pulse Rate 70 69 70 Respiratory Rate Blood Pressure Blood Pressure [Left] O2 Sat by Pulse 98 98 98 Oximetry 05/03/17 05/03/17 05/03/17 01:48 01:53 01:58 Temperature Pulse Rate 69 70 74 Respiratory Rate Blood Pressure Blood Pressure [Left] O2 Sat by Pulse 98 97 98 Oximetry 05/03/17 05/03/17 05/03/17 02:03 02:08 02:13 Temperature Pulse Rate 69 67 62 Respiratory Rate Blood Pressure Blood Pressure [Left] O2 Sat by Pulse 98 98 99 Oximetry 05/03/17 05/03/17 05/03/17 02:18 02:23 02:28 Temperature Pulse Rate 70 72 70 Respiratory Rate Blood Pressure Blood Pressure [Left] O2 Sat by Pulse 99 98 98 Oximetry 05/03/17 05/03/17 05/03/17 02:33 02:38 02:43 Temperature Pulse Rate 69 68 75 Respiratory Rate Blood Pressure Blood Pressure [Left] O2 Sat by Pulse 98 98 98 Oximetry 05/03/17 05/03/17 05/03/17 02:48 02:53 02:58 Temperature Pulse Rate 80 81 77 Respiratory Rate Blood Pressure Blood Pressure [Left] O2 Sat by Pulse 97 98 98 Oximetry 05/03/17 05/03/17 05/03/17 03:03 03:08 03:13 Temperature Pulse Rate 73 77 69 Respiratory Rate Blood Pressure Blood Pressure [Left] O2 Sat by Pulse 98 98 99 Oximetry 05/03/17 05/03/17 05/03/17 03:18 03:23 03:28 Temperature Pulse Rate 70 67 66 Respiratory Rate Blood Pressure Blood Pressure [Left] O2 Sat by Pulse 98 98 99 Oximetry 05/03/17 05/03/17 05/03/17 03:33 03:38 03:43 Temperature Pulse Rate 66 66 66 Respiratory Rate Blood Pressure Blood Pressure [Left] O2 Sat by Pulse 97 98 98 Oximetry 05/03/17 05/03/17 03:48 03:53 Temperature Pulse Rate 65 67 Respiratory Rate Blood Pressure Blood Pressure [Left] O2 Sat by Pulse 98 97 Oximetry - Exam FHR: category 1 - Labs Labs: Abnormal Labs 05/01/17 05/02/17 19:56 13:15 MCHC 35 H RDW 12.7 L 12.7 L [place]itus % (Auto) 9.2 H Seg Neutrophils % 72.8 H Laboratory Results - last 24 hr 05/02/17 05/02/17 05/02/17 12:24 12:24 12:24 WBC RBC Hgb Hct MCV MCH MCHC RDW Plt Count Hep Bs Antigen Non-reactive HIV 1&2 Antibody Rapid Non react HIV P24 Antigen Non react Rubella IgG Antibody Immune Blood Type Antibody Screen 05/02/17 05/02/17 13:05 13:15 WBC 7.7 RBC 3.94 Hgb 11.8 Hct 34.0 MCV 86 MCH 30 MCHC 35 H RDW 12.7 L Plt Count 151 Hep Bs Antigen HIV 1&2 Antibody Rapid HIV P24 Antigen Rubella IgG Antibody Blood Type B POSITIVE Antibody Screen Negative
--- NOTE | 2017-05-03 11:15 | Progress Note ---
Assessment and Plan A: IUP at 36 Weeks Category I Tracing Oligo GBS Unknown P: Cook's Cervical Ripening Balloon Continue Pitocin Induction GBS prophylaxis Subjective - Subjective Date of service: 05/03/17 Principal diagnosis: IUP @ 36 wks with borderline normal CHARAN Patient reports: vaginal bleeding, movement normal, no loss of fluid, no contractions Objective - Vital Signs Vital Signs: Vital Signs - 12hr 05/03/17 05/03/17 05/03/17 00:46 00:48 00:53 Pulse Rate 69 71 68 Blood Pressure 117/55 O2 Sat by Pulse 96 98 Oximetry 05/03/17 05/03/17 05/03/17 00:58 01:03 01:08 Pulse Rate 72 71 68 Blood Pressure O2 Sat by Pulse 98 98 98 Oximetry 05/03/17 05/03/17 05/03/17 01:13 01:18 01:23 Pulse Rate 71 73 73 Blood Pressure O2 Sat by Pulse 98 97 98 Oximetry 05/03/17 05/03/17 05/03/17 01:28 01:33 01:38 Pulse Rate 73 70 69 Blood Pressure O2 Sat by Pulse 98 98 98 Oximetry 05/03/17 05/03/17 05/03/17 01:43 01:48 01:53 Pulse Rate 70 69 70 Blood Pressure O2 Sat by Pulse 98 98 97 Oximetry 05/03/17 05/03/17 05/03/17 01:58 02:03 02:08 Pulse Rate 74 69 67 Blood Pressure O2 Sat by Pulse 98 98 98 Oximetry 05/03/17 05/03/17 05/03/17 02:13 02:18 02:23 Pulse Rate 62 70 72 Blood Pressure O2 Sat by Pulse 99 99 98 Oximetry 05/03/17 05/03/17 05/03/17 02:28 02:33 02:38 Pulse Rate 70 69 68 Blood Pressure O2 Sat by Pulse 98 98 98 Oximetry 05/03/17 05/03/17 05/03/17 02:43 02:48 02:53 Pulse Rate 75 80 81 Blood Pressure O2 Sat by Pulse 98 97 98 Oximetry 05/03/17 05/03/17 05/03/17 02:58 03:03 03:08 Pulse Rate 77 73 77 Blood Pressure O2 Sat by Pulse 98 98 98 Oximetry 05/03/17 05/03/17 05/03/17 03:13 03:18 03:23 Pulse Rate 69 70 67 Blood Pressure O2 Sat by Pulse 99 98 98 Oximetry 05/03/17 05/03/17 05/03/17 03:28 03:33 03:38 Pulse Rate 66 66 66 Blood Pressure O2 Sat by Pulse 99 97 98 Oximetry 05/03/17 05/03/17 05/03/17 03:43 03:48 03:53 Pulse Rate 66 65 67 Blood Pressure O2 Sat by Pulse 98 98 97 Oximetry 05/03/17 05/03/17 05/03/17 09:19 10:52 11:09 Pulse Rate 87 76 81 Blood Pressure 110/65 118/62 120/67 O2 Sat by Pulse Oximetry - Exam Breasts: normal Cardiovascular: Regular rate Abdomen: Present: normal appearance, normal bowel sounds Uterus: Present: normal, fundal height above umbilicus FHR: category 1 Uterine Contraction Monitor Mode: External Cervical Dilatation: 1 (VTx, Intact) Cervical Effacement Percentage: 60 station: -3 Uterine Contraction Pattern: Irregular Uterine Tone Measurement Phase: Resting Uterine Contraction Intensity: Mild Extremities: normal - Labs Labs: Abnormal Labs 05/01/17 05/02/17 19:56 13:15 MCHC 35 H RDW 12.7 L 12.7 L [place]ulk % (Auto) 9.2 H Seg Neutrophils % 72.8 H Laboratory Results - last 24 hr 05/02/17 05/02/17 05/02/17 12:24 12:24 12:24 WBC RBC Hgb Hct MCV MCH MCHC RDW Plt Count Hep Bs Antigen Non-reactive HIV 1&2 Antibody Rapid Non react HIV P24 Antigen Non react Rubella IgG Antibody Immune Blood Type Antibody Screen 05/02/17 05/02/17 13:05 13:15 WBC 7.7 RBC 3.94 Hgb 11.8 Hct 34.0 MCV 86 MCH 30 MCHC 35 H RDW 12.7 L Plt Count 151 Hep Bs Antigen HIV 1&2 Antibody Rapid HIV P24 Antigen Rubella IgG Antibody Blood Type B POSITIVE Antibody Screen Negative
[2017-05-03] MEDS: CLEOCIN 900 MG/50 mL 900 MG/50 ML BAG IV SCH ×2 (11:20→16:23)
[2017-05-03] MEDS: SUBLIMAZE IV PRN ×2 (11:20→14:03)
--- NOTE | 2017-05-03 14:53 | Progress Note ---
Assessment and Plan A: IUP at 36 Weeks Category I Tracing Oligo GBS Unknown P: Cook's Cervical Ripening Balloon Out Continue Pitocin Augmentation AROM Prepare for Epidural Anesthesia Subjective - Subjective Date of service: 05/03/17 Principal diagnosis: IUP @ 36 wks with borderline normal CHARAN Patient reports: vaginal bleeding, movement normal, contractions, no loss of fluid Objective - Vital Signs Vital Signs: Vital Signs - 12hr 05/03/17 05/03/17 05/03/17 02:58 03:03 03:08 Pulse Rate 77 73 77 Blood Pressure O2 Sat by Pulse 98 98 98 Oximetry 05/03/17 05/03/17 05/03/17 03:13 03:18 03:23 Pulse Rate 69 70 67 Blood Pressure O2 Sat by Pulse 99 98 98 Oximetry 05/03/17 05/03/17 05/03/17 03:28 03:33 03:38 Pulse Rate 66 66 66 Blood Pressure O2 Sat by Pulse 99 97 98 Oximetry 05/03/17 05/03/17 05/03/17 03:43 03:48 03:53 Pulse Rate 66 65 67 Blood Pressure O2 Sat by Pulse 98 98 97 Oximetry 05/03/17 05/03/17 05/03/17 09:19 10:52 11:09 Pulse Rate 87 76 81 Blood Pressure 110/65 118/62 120/67 O2 Sat by Pulse Oximetry 05/03/17 05/03/17 05/03/17 12:10 13:01 13:31 Pulse Rate 71 77 71 Blood Pressure 104/59 112/57 99/55 O2 Sat by Pulse Oximetry 05/03/17 05/03/17 14:02 14:31 Pulse Rate 83 65 Blood Pressure 112/61 108/55 O2 Sat by Pulse Oximetry - Exam Breasts: normal Cardiovascular: Regular rate Lungs: Normal air movement Abdomen: Present: normal appearance, soft Uterus: Present: normal, firm, fundal height above umbilicus FHR: category 1 Uterine Contraction Monitor Mode: External Cervical Dilatation: 5 (Small amount of clear fluid upon AROM at 1447) Cervical Effacement Percentage: 70 station: -2 Uterine Contraction Frequency (min): 3-4 Uterine Contraction Pattern: Regular Uterine Tone Measurement Phase: Contraction Uterine Contraction Intensity: Moderate Extremities: normal - Labs Labs: Abnormal Labs 05/01/17 05/02/17 19:56 13:15 MCHC 35 H RDW 12.7 L 12.7 L [place] % (Auto) 9.2 H Seg Neutrophils % 72.8 H Laboratory Results - last 24 hr 05/02/17 12:24 RPR Nonreactive
[2017-05-03] MEDS ORDERED: ePHEDrine SULFATE IV PRN (15:27)
[2017-05-03] MEDS ORDERED: NARCAN 2 MG/2 ML IV PRN (15:27)
--- NOTE | 2017-05-03 15:27 | Anesthesia Consultation ---
Anesthesia Consult and Med Hx Date of service: 05/03/17 - Airway Anesthetic Teeth Evaluation: Good ROM Head & Neck: Adequate Mental/Hyoid Distance: Adequate Mallampati Class: Class II Intubation Access Assessment: Probably Good - Pre-Operative Health Status ASA Pre-Surgery Classification: ASA2 Proposed Anesthetic Plan: Epidural, Spinal - Pulmonary Hx Asthma: Yes (uses inhaler daily) - Cardiovascular System Hx Hypertension: No - Central Nervous System Hx Seizures: No Hx Psychiatric Problems: No - Endocrine Hx Renal Disease: No Hx Hypothyroidism: No Hx Hyperthyroidism: No - Hematic Hx Anemia: No Hx Sickle Cell Disease: No - Other Systems Hx Alcohol Use: No Hx Substance Use: Yes
[2017-05-03] MEDS ORDERED: fentaNYL-BUPIV 2 MCG/ML-0.125% 200 MCG/100 ML BAG EPIDURAL SCH (16:00)
--- NOTE | 2017-05-03 17:01 | Progress Note ---
Assessment and Plan - Patient Problems (1) 35 to 36 weeks gestation of Current Visit: Yes Status: Acute (2) Oligohydramnios in third trimester Current Visit: Yes Status: Acute Qualifiers: Fetus number: F (3) Limited care Current Visit: Yes Status: Acute Qualifiers: Trimester: T Subjective - Subjective Date of service: 05/03/17 Principal diagnosis: IUP @ 36 wks with borderline normal CHARAN Interval history: Now 7 cm per RN exam Patient reports: vaginal bleeding, movement normal, contractions, no loss of fluid Objective - Vital Signs Vital Signs: Vital Signs - 12hr 05/03/17 05/03/17 05/03/17 09:19 10:52 11:09 Pulse Rate 87 76 81 Blood Pressure 110/65 118/62 120/67 O2 Sat by Pulse Oximetry 05/03/17 05/03/17 05/03/17 12:10 13:01 13:31 Pulse Rate 71 77 71 Blood Pressure 104/59 112/57 99/55 O2 Sat by Pulse Oximetry 05/03/17 05/03/17 05/03/17 14:02 14:31 15:02 Pulse Rate 83 65 73 Blood Pressure 112/61 108/55 128/57 O2 Sat by Pulse Oximetry 05/03/17 05/03/17 05/03/17 15:31 15:34 15:37 Pulse Rate 75 82 76 Blood Pressure 127/77 135/93 O2 Sat by Pulse 100 Oximetry 05/03/17 05/03/17 05/03/17 15:39 15:41 15:43 Pulse Rate 80 77 73 Blood Pressure 130/69 132/74 129/70 O2 Sat by Pulse 100 Oximetry 05/03/17 05/03/17 05/03/17 15:44 15:45 15:47 Pulse Rate 74 72 Blood Pressure 129/75 131/78 O2 Sat by Pulse 100 Oximetry 05/03/17 05/03/17 05/03/17 15:49 15:51 15:53 Pulse Rate 70 71 71 Blood Pressure 128/77 128/77 116/73 O2 Sat by Pulse 100 Oximetry 05/03/17 05/03/17 05/03/17 15:54 15:55 15:57 Pulse Rate 71 68 64 Blood Pressure 116/75 113/58 O2 Sat by Pulse 100 Oximetry 05/03/17 05/03/17 05/03/17 15:59 16:01 16:03 Pulse Rate 68 74 96 H Blood Pressure 114/59 122/65 127/62 O2 Sat by Pulse 100 Oximetry 05/03/17 05/03/17 05/03/17 16:04 16:09 16:14 Pulse Rate 96 H 121 H 72 Blood Pressure 131/65 121/58 O2 Sat by Pulse 100 99 100 Oximetry 05/03/17 05/03/17 05/03/17 16:18 16:19 16:22 Pulse Rate 67 67 70 Blood Pressure 112/63 119/67 O2 Sat by Pulse 73 L Oximetry 05/03/17 05/03/17 05/03/17 16:24 16:29 16:30 Pulse Rate 70 68 74 Blood Pressure 117/81 O2 Sat by Pulse 100 96 92 Oximetry 05/03/17 05/03/17 05/03/17 16:34 16:39 16:44 Pulse Rate 67 72 70 Blood Pressure O2 Sat by Pulse 99 100 100 Oximetry 05/03/17 05/03/17 05/03/17 16:46 16:49 16:54 Pulse Rate 67 74 66 Blood Pressure 103/56 O2 Sat by Pulse 100 99 Oximetry 05/03/17 16:59 Pulse Rate 64 Blood Pressure 121/65 O2 Sat by Pulse 100 Oximetry - Exam FHR: category 1 Cervical Dilatation: 7 - Labs Labs: Abnormal Labs 05/01/17 05/02/17 19:56 13:15 MCHC 35 H RDW 12.7 L 12.7 L [place] % (Auto) 9.2 H Seg Neutrophils % 72.8 H Laboratory Results - last 24 hr 05/02/17 12:24 RPR Nonreactive
--- NOTE | 2017-05-03 18:51 | Progress Note ---
Assessment and Plan A: 21-year-old at 36 weeks with borderline low amniotic fluid -Cat 1 tracing P: -Will place IUPC w/ amnio-infusion if variable decel continue -Continue present care -Anticipate normal vaginal delivery - Patient Problems (1) 35 to 36 weeks gestation of Current Visit: Yes Status: Acute (2) Oligohydramnios in third trimester Current Visit: Yes Status: Acute Qualifiers: Fetus number: F (3) Limited care Current Visit: Yes Status: Acute Qualifiers: Trimester: T Subjective - Subjective Date of service: 05/03/17 Principal diagnosis: IUP @ 36 wks with borderline normal CHARAN Interval history: Now Patient reports: vaginal bleeding, movement normal, contractions, no loss of fluid Objective - Vital Signs Vital Signs: Vital Signs - 12hr 05/03/17 05/03/17 05/03/17 09:19 10:52 11:09 Pulse Rate 87 76 81 Blood Pressure 110/65 118/62 120/67 O2 Sat by Pulse Oximetry 05/03/17 05/03/17 05/03/17 12:10 13:01 13:31 Pulse Rate 71 77 71 Blood Pressure 104/59 112/57 99/55 O2 Sat by Pulse Oximetry 05/03/17 05/03/17 05/03/17 14:02 14:31 15:02 Pulse Rate 83 65 73 Blood Pressure 112/61 108/55 128/57 O2 Sat by Pulse Oximetry 05/03/17 05/03/17 05/03/17 15:31 15:34 15:37 Pulse Rate 75 82 76 Blood Pressure 127/77 135/93 O2 Sat by Pulse 100 Oximetry 05/03/17 05/03/17 05/03/17 15:39 15:41 15:43 Pulse Rate 80 77 73 Blood Pressure 130/69 132/74 129/70 O2 Sat by Pulse 100 Oximetry 05/03/17 05/03/17 05/03/17 15:44 15:45 15:47 Pulse Rate 74 72 Blood Pressure 129/75 131/78 O2 Sat by Pulse 100 Oximetry 05/03/17 05/03/17 05/03/17 15:49 15:51 15:53 Pulse Rate 70 71 71 Blood Pressure 128/77 128/77 116/73 O2 Sat by Pulse 100 Oximetry 09/03/1205/03/17 05/03/17 15:54 15:55 15:57 Pulse Rate 71 68 64 Blood Pressure 116/75 113/58 O2 Sat by Pulse 100 Oximetry 05/03/17 05/03/17 05/03/17 15:59 16:01 16:03 Pulse Rate 68 74 96 H Blood Pressure 114/59 122/65 127/62 O2 Sat by Pulse 100 Oximetry 05/03/17 05/03/17 05/03/17 16:04 16:09 16:14 Pulse Rate 96 H 121 H 72 Blood Pressure 131/65 121/58 O2 Sat by Pulse 100 99 100 Oximetry 05/03/17 05/03/17 05/03/17 16:18 16:19 16:22 Pulse Rate 67 67 70 Blood Pressure 112/63 119/67 O2 Sat by Pulse 73 L Oximetry 05/03/17 05/03/17 05/03/17 16:24 16:29 16:30 Pulse Rate 70 68 74 Blood Pressure 117/81 O2 Sat by Pulse 100 96 92 Oximetry 05/03/17 05/03/17 05/03/17 16:34 16:39 16:44 Pulse Rate 67 72 70 Blood Pressure O2 Sat by Pulse 99 100 100 Oximetry 05/03/17 05/03/17 05/03/17 16:46 16:49 16:54 Pulse Rate 67 74 66 Blood Pressure 103/56 O2 Sat by Pulse 100 99 Oximetry 05/03/17 05/03/17 05/03/17 16:59 17:04 17:09 Pulse Rate 64 69 75 Blood Pressure 121/65 O2 Sat by Pulse 100 100 100 Oximetry 05/03/17 05/03/17 05/03/17 17:14 17:16 17:18 Pulse Rate 70 68 79 Blood Pressure 147/64 O2 Sat by Pulse 99 90 Oximetry 05/03/17 05/03/17 05/03/17 17:19 17:24 17:29 Pulse Rate 74 68 69 Blood Pressure O2 Sat by Pulse 97 100 100 Oximetry 05/03/17 05/03/17 05/03/17 17:30 17:34 17:39 Pulse Rate 65 67 66 Blood Pressure 130/70 O2 Sat by Pulse 99 100 Oximetry 05/03/17 05/03/17 05/03/17 17:44 17:45 17:49 Pulse Rate 75 69 69 Blood Pressure 122/69 O2 Sat by Pulse 100 100 Oximetry 05/03/17 05/03/17 05/03/17 17:54 17:59 18:04 Pulse Rate 85 88 71 Blood Pressure 119/66 O2 Sat by Pulse 100 100 95 Oximetry 05/03/17 05/03/17 05/03/17 18:09 18:14 18:15 Pulse Rate 70 71 69 Blood Pressure 126/67 O2 Sat by Pulse 100 100 Oximetry 05/03/17 05/03/17 05/03/17 18:19 18:24 18:29 Pulse Rate 72 75 75 Blood Pressure O2 Sat by Pulse 100 99 100 Oximetry 05/03/17 05/03/17 05/03/17 18:30 18:34 18:39 Pulse Rate 70 71 73 Blood Pressure 137/68 O2 Sat by Pulse 100 100 Oximetry 05/03/17 05/03/17 18:44 18:49 Pulse Rate 76 76 Blood Pressure 133/74 O2 Sat by Pulse 97 99 Oximetry - Exam FHR: category 2 (Intermittent early like variable decel) Cervical Dilatation: 7.5 station: 0 - Labs Labs: Abnormal Labs 05/01/17 05/02/17 19:56 13:15 MCHC 35 H RDW 12.7 L 12.7 L [place] % (Auto) 9.2 H Seg Neutrophils % 72.8 H Laboratory Results - last 24 hr 05/02/17 12:24 RPR Nonreactive
[2017-05-03] MEDS ORDERED: XYLOCAINE 2% INFILTRATI ONE (19:45)
--- NOTE | 2017-05-03 20:16 | Procedure Note ---
OB Delivery Note - Delivery Date of Delivery: 05/03/17 Surgeon: KAYLA LEWIS Estimated blood loss: 300cc - Vaginal Delivery presentation: vertex Delivery position: OA Intrapartum events: labor-<37 weeks Delivery induction: other (Pryor bulb) Delivery augmentation: pitocin Delivery monitor: external FHT, external uterine Route of delivery: Delivery placenta: spontaneous Delivery cord: 3 umbilical vessels Episiotomy: none Delivery laceration: other (Bilateral paddy-urethral) Delivery repair: vicryl Anesthesia: local, epidural - Infant A at 1 minute: 8 at 5 minutes: 9 Infant Gender: Male (Del @ 19:41, weight was 4#15 or 1947 g)
[2017-05-03] MEDS ORDERED: LANSINOH TP PRN (20:17)
[2017-05-03] MEDS ORDERED: TYLENOL PO PRN (20:17)
[2017-05-03] MEDS ORDERED: PHENERGAN PR PRN (20:17)
[2017-05-03] MEDS ORDERED: DULCOLAX PR PRN (20:17)
[2017-05-03] MEDS ORDERED: MILK OF MAGNESIA PO PRN (20:17)
[2017-05-03] MEDS ORDERED: PHENERGAN PO PRN (20:17)
[2017-05-03] MEDS ORDERED: NORCO 5/325 PO PRN (20:17)
[2017-05-03] MEDS ORDERED: TUCKS PAD TP PRN (20:17)
[2017-05-03] MEDS ORDERED: ZOFRAN IV PRN (20:17)
[2017-05-03] MEDS ORDERED: BENADRYL PO PRN (20:17)
[2017-05-03] MEDS ORDERED: SODIUM CHLORIDE FLUSH SYRINGE 10 ML IV PRN (21:00)
[2017-05-03] MEDS: FEOSOL PO SCH (23:11)
[2017-05-03] MEDS: SENOKOT S PO SCH (23:11)
[2017-05-03] MEDS: MOTRIN PO SCH (23:12)
[2017-05-04] MEDS: MOTRIN PO SCH ×4 (06:00→23:22)
--- NOTE | 2017-05-04 09:45 | Progress Note ---
Assessment and Plan A: PPD # 1 - stable P: Discharge home in am Subjective - Subjective Date of service: 05/04/17 Principal diagnosis: IUP @ 36 wks with borderline normal CHARAN Patient reports: appetite normal : doing well Objective - Vital Signs Latest vital signs: Vital Signs Temp Pulse Resp BP BP Pulse Ox 05/04/17 08:05 98.0 F 73 18 112/73 05/04/17 04:25 98.2 F 74 115/52 05/03/17 22:40 97.8 F 18 05/03/17 22:15 98.9 F 78 16 121/60 05/03/17 21:14 98 H 101/64 05/03/17 20:59 100 H 129/67 05/03/17 20:44 90 134/65 05/03/17 20:29 82 144/66 05/03/17 20:14 109 H 141/58 05/03/17 20:00 106 H 165/83 05/03/17 19:57 91 H 155/75 05/03/17 19:54 89 100 05/03/17 19:49 92 H 99 05/03/17 19:44 77 136/65 97 05/03/17 19:39 107 H 100 05/03/17 19:34 103 H 100 05/03/17 19:31 101 H 126/73 05/03/17 19:29 91 H 100 05/03/17 19:24 92 H 99 05/03/17 19:19 92 H 100 05/03/17 19:15 75 140/81 05/03/17 19:14 88 100 05/03/17 19:09 77 100 05/03/17 19:08 98.9 F 18 05/03/17 19:04 88 99 05/03/17 18:59 73 126/70 100 05/03/17 18:54 77 100 05/03/17 18:49 76 99 05/03/17 18:44 76 133/74 97 05/03/17 18:39 73 100 05/03/17 18:34 71 100 05/03/17 18:30 70 137/68 05/03/17 18:29 75 100 05/03/17 18:24 75 99 05/03/17 18:19 72 100 05/03/17 18:15 98.6 F 69 18 126/67 05/03/17 18:14 71 100 05/03/17 18:09 70 100 05/03/17 18:04 71 95 05/03/17 17:59 88 119/66 100 05/03/17 17:54 85 100 05/03/17 17:49 69 100 05/03/17 17:45 69 122/69 05/03/17 17:44 75 100 05/03/17 17:39 66 100 05/03/17 17:34 67 99 05/03/17 17:30 65 130/70 05/03/17 17:29 69 100 05/03/17 17:24 68 100 05/03/17 17:19 74 97 05/03/17 17:18 79 90 05/03/17 17:16 68 147/64 05/03/17 17:14 70 99 05/03/17 17:09 75 100 05/03/17 17:04 69 100 05/03/17 16:59 64 121/65 100 05/03/17 16:54 66 99 05/03/17 16:49 74 100 05/03/17 16:46 67 103/56 05/03/17 16:44 70 100 05/03/17 16:39 72 100 05/03/17 16:34 67 99 05/03/17 16:30 74 92 05/03/17 16:29 68 117/81 96 05/03/17 16:24 70 100 05/03/17 16:22 70 119/67 05/03/17 16:19 67 73 L 05/03/17 16:18 67 112/63 05/03/17 16:14 72 121/58 100 05/03/17 16:09 121 H 131/65 99 05/03/17 16:04 96 H 100 05/03/17 16:03 96 H 127/62 05/03/17 16:01 74 122/65 05/03/17 15:59 68 114/59 100 05/03/17 15:57 64 113/58 05/03/17 15:55 68 116/75 05/03/17 15:54 71 100 05/03/17 15:53 71 116/73 05/03/17 15:51 71 128/77 05/03/17 15:49 70 128/77 100 05/03/17 15:47 131/78 05/03/17 15:45 72 129/75 05/03/17 15:44 74 100 05/03/17 15:43 73 129/70 05/03/17 15:41 77 132/74 05/03/17 15:39 80 130/69 100 05/03/17 15:37 76 135/93 05/03/17 15:34 82 100 05/03/17 15:31 75 127/77 05/03/17 15:02 73 128/57 05/03/17 14:31 65 108/55 05/03/17 14:08 98.9 F 18 05/03/17 14:02 83 112/61 05/03/17 13:31 71 99/55 05/03/17 13:01 77 112/57 05/03/17 13:00 98.4 F 18 05/03/17 12:10 71 104/59 05/03/17 11:09 81 120/67 05/03/17 10:52 76 118/62 05/03/17 10:45 98.2 F 18 Intake and Output 05/03/17 05/04/17 05/04/17 22:59 06:59 14:59 Intake Total 2000 240 Output Total 1900 1700 Balance 100 -1460 Intake: IV 2000 Lactated Ringers 1,000 ml 2000 @ 125 mls/hr IV DIRECT WES Rx#:[id number] Oral 240 Output: Urine 1900 1700 Indwelling Catheter 1100 Uretheral (Pryor) 800 Void 1700 Other: Total, Intake Amount 240 Total, Output Amount 300 700 Estimated Blood Loss 300 - Exam Breasts: Present: deferred, Cardiovascular: Present: Regular rate Lungs: Present: Clear to auscultation Abdomen: Present: soft Vulva: both: normal Uterus: Present: fundal height below umbilicus Extremities: Present: normal Deep Tendon Reflex Grade: Normal +2
--- NOTE | 2017-05-04 09:45 | Discharge Summary ---
Providers - Providers Date of Admission: 05/01/17 18:07 Date of discharge: 05/05/17 Attending physician: LORY SANCHES MD Primary care physician: LORY SANCHES MD Hospitalization Reason for admission: induction of labor Delivery: Laceration: 1st degree (bilateral periurethral) Other procedures: none complications: none Discharge diagnosis: IUP at term delivered baby: male Condition at discharge: Good Disposition: DC-01 TO HOME OR SELFCARE Plan - Discharge Medications Prescriptions: Ibuprofen [Motrin 600 MG tab] 600 mg PO Q8H PRN #30 tablet PRN Reason: Pain Multivitamin with Iron [Multivitamins with Iron] 1 each PO DAILY #30 tablet - Provider Discharge Summary Activity: routine, no sex for 6 weeks, no strenuous exercise Diet: routine Instructions: routine Additional instructions: [] Smoking cessation referral if applicable(refer to patient education folder for contact #) [] Refer to [facility] Booklet Call your doctor immediately for: * Fever > 100.5 * Heavy vaginal bleeding ( >1 pad per hour) * Severe persistent headache * Shortness of breath * Reddened, hot, painful area to leg or breast * Drainage or odor from incision. * Keep incision clean and dry at all times and follow doctor's instructions regarding bathing/showering - Follow up plan Follow up: [facility] [Provider Group] - 6 Weeks
[2017-05-04 11:22] LABS: Hematocrit 32.9 % (30.3-42.9); Hemoglobin 11.1 gm/dl (10.1-14.3)
[2017-05-04] MEDS: SENOKOT S PO SCH ×2 (12:10→23:22)
[2017-05-04] MEDS: PRENATAL VITAMIN PO SCH (12:11)
[2017-05-04] MEDS: FEOSOL PO SCH ×2 (12:11→23:21)
--- NOTE | 2017-05-04 12:43 | Progress Note ---
Subjective Date of service: 05/04/17 Principal diagnosis: IUP @ 36 wks with borderline normal CHARAN Interval history: 1st day after normal vaginal delivery Patient is in the bed, comfortable. Pain is well controlled with pain meds. Ambulated well. No residual neurological deficit. No anesthesia complications Objective - Constitutional Vitals: Vital Signs - 12hr 05/04/17 05/04/17 04:25 08:05 Temperature 98.2 F 98.0 F Pulse Rate 74 73 Respiratory 18 Rate Blood Pressure 115/52 112/73 [Left] - Labs CBC & Chem 7: 05/04/17 10:30
[2017-05-04] MEDS ORDERED: M-M-R II VACCINE SUB-Q ONE (20:17)
[2017-05-05] MEDS: MOTRIN PO SCH ×2 (05:10→11:39)
[2017-05-05] MEDS ORDERED: BOOSTRIX IM ONE (06:00)
[2017-05-05] MEDS: PRENATAL VITAMIN PO SCH (11:39)
[2017-05-05] MEDS: SENOKOT S PO SCH (11:39)
[2017-05-05] MEDS: FEOSOL PO SCH (11:39)
[2017-05-05 17:39] VITALS: BP 120/83
[2017-05-05] MEDS ORDERED: Fluarix Quad 2017-2018(36 MOS+) IM ONE (18:27)
== END 2017-05-05 21:00 | disposition home or self-care (01) | DRG 775 ==
LOC: LD 18:07 → OB 05-03 22:53
PROVIDERS: ADMIT Obstetrics & Gynecology; ATTEND Obstetrics & Gynecology
PROC: 10E0XZZ Delivery of Products of Conception, External Approach (ICD-10-PCS; principal; 2017-05-03)
PROC: 0UQMXZZ Repair Vulva, External Approach (ICD-10-PCS; 2017-05-03)
PROC: 00HU33Z Insertion of Infusion Device into Spinal Canal, Percutaneous Approach (ICD-10-PCS; 2017-05-03)
PROC: 3E0R3CZ (ICD-10-PCS; 2017-05-03)
PROC: 3E0234Z Introduction of Serum, Toxoid and Vaccine into Muscle, Percutaneous Approach (ICD-10-PCS; 2017-05-04)
DX: O60.14X0 Preterm labor third trimester with preterm delivery third trimester, not applicable or unspecified (principal); O41.03X0 Oligohydramnios, third trimester, not applicable or unspecified; Z3A.35 35 weeks gestation of pregnancy; Z37.0 Single live birth; O71.82 Other specified trauma to perineum and vulva; Z23 Encounter for immunization
CPT/HCPCS: 36415; 76815; 76819; 80307; 85014; 85018; 85025; 85027; 86592; 86706; 86762; 86850; 86900; 86901; 87806; 90471; 90686; 90715; 99211; A6250; G0463; J2405; J2590; J3010; J7120